=== PATIENT | female | born 1980 | race Caucasian/White ===

== ENCOUNTER 2019-09-06 10:46 | Inpatient (IN) | payer BC, OTHER ==
[2019-09-06 11:34] VITALS: BMI 28.3
[2019-09-06] MEDS ORDERED: SODIUM CHLORIDE 0.9% 1000 ML INFUS.BAG IV ONE (11:37)
[2019-09-06] MEDS ORDERED: ACETAMINOPHEN 1000 MG/100 ML VIAL (NON FORMULARY) IVPB ONE (11:37)
[2019-09-06] MEDS ORDERED: ACETAMINOPHEN INJECTION 100 ML IVPB ONE (12:15)
--- NOTE | 2019-09-06 12:21 | PDOC ---
History of Present Illness - General Chief Complaint: Pain, Acute Stated Complaint: KIDNEY STONE 12 WKS PRG Time Seen by Provider: 09/06/19 11:29 - History of Present Illness Initial Comments: 09/06/19 12:18 39 years old with past medical history significant for UTIs and renal colic presents to the emergency department after finding out yesterday that she was approximately 12 weeks confirmed by ultrasound by DEVIL DOG after she returned home she realized she forgot to mention to her OB that she was having some urinary discomfort and her DEVIL DOG prescribed Macrobid for her to take she took 1 dose this morning Last night patient had sudden onset left flank pain moderate to severe colicky in nature similar to previous kidney stones No fever no chills mild nausea no vomiting complaining of urinary pressure no vaginal discharge symptoms are moderate persistent constant no exacerbating relieving factors. Past History - Past Medical History Allergies/Adverse Reactions: Allergies Allergy/AdvReac Type Severity Reaction Status Date / Time No Known Allergies Allergy Verified 09/06/19 11:30 Home Medications: Ambulatory Orders Pnv with Ca,No.71/Iron/FA [ Vitamin Tablet] 1 each PO DAILY 10/19/12 Acetaminophen [Tylenol .Regular Strength -] 650 mg PO Q4H PRN #0 tablet Ibuprofen [Motrin -] 600 mg PO Q4H PRN #0 tablet 10/26/12 Anemia: No Asthma: No Cancer: No Cardiac Disorders: No COPD: No Diabetes: No HTN: No Seizures: No Thyroid Disease: No - Surgical History Abdominal Surgery: No - Reproductive History (#): 2 Para: 1 - Immunization History Immunization Up to Date: Yes - Psycho Social/Smoking Cessation Hx Smoking Status: No Smoking History: Never smoked Have you smoked in the past 12 months: No Number of Cigarettes Smoked Daily: 0 Hx Alcohol Use: No Drug/Substance Use Hx: No Hx Substance Use Treatment: No Review of Systems - Review of Systems Comments:: 09/06/19 12:20 Insert my ROS statement *Physical Exam - Vital Signs Last Vital Signs Temp Pulse Resp BP Pulse Ox 98.1 F 95 H 17 108/53 L 98 09/06/19 11:31 09/06/19 11:31 09/06/19 11:31 09/06/19 11:31 09/06/19 11:31 ED Treatment Course - LABORATORY CBC & Chemistry Diagram: 12/31/19 12:18 09/06/19 12:18 - RADIOLOGY Radiology Studies Ordered: Category Date Time Status KIDNEY / RENAL US [US] Stat Ultrasound 09/06/19 11:36 Ordered PELVIC / BLADDER US [US] Stat Ultrasound 09/06/19 11:36 Ordered Medical Decision Making - Medical Decision Making 39 years old past medical history significant for UTIs and kidney stones presented to the ED with urinary frequency and flank pain Urinalysis shows infection there is CVA tenderness on patient's physical examination a renal bladder ultrasound was ordered which demonstrated no hydro- no nephrolithiasis no hydroureter and bilateral symmetric ureteral jets at this time low suspicion for nephrolithiasis Given 11-week Case discussed with patient's DEVIL DOG Dr. Ricardo agrees with admission to medicine service for IV antibiotics will consult We will admit to medicine for further management. Discharge - Discharge Information Problems reviewed: Yes Clinical Impression/Diagnosis: Pyelonephritis Qualifiers: Weeks of gestation: 11 weeks Qualified Code(s): Z3A.11 - 11 weeks gestation of Condition: Fair - Admission Yes - Follow up/Referral - Patient Discharge Instructions - Post Discharge Activity
[2019-09-06 12:38] LABS: BASO % 0.5 % (0-2.0); HEMATOCRIT 41.7 % (32.4-45.2); HEMOGLOBIN 14.2 GM/dL (10.7-15.3); LYMPH % 12.7 % (8-40); MCH 31.9 pg (25.7-33.7); MEAN CELL VOLUME 93.9 fl (80-96); MEAN PLT VOLUME 9.7 fl (7.5-11.1); MONO % 3.8 % (3.8-10.2); PLATELET COUNT 188 K/MM3 (134-434); RBC 4.44 M/mm3 (3.60-5.2); RDW 12.4 % (11.6-15.6); WHITE BLOOD COUNT 11.6 K/mm3 (4.0-10.0)
[2019-09-06 13:27] LABS: BILIRUBIN,TOTAL 0.6 mg/dL (0.2-1); BLOOD UREA NITROGEN 8.9 mg/dL (7-18); CALCIUM 9.2 mg/dL (8.5-10.1); CREATININE 0.6 mg/dL (0.55-1.3); POTASSIUM 3.9 mmol/L (3.5-5.1); TOT PROT 7.5 g/dl (6.4-8.2)
[2019-09-06 13:41] LABS: EPI CELLS 2.4 /HPF (0-5/HPF); HYALINE CASTS 19 /lpf (0-8); URINE APPEARANCE CLEAR; URINE BACTERIA 100.3 /hpf (NEGATIVE); URINE BILIRUBIN NEGATIVE (NEGATIVE); URINE COLOR YELLOW; URINE GLUCOSE (UA) NEGATIVE (NEGATIVE); URINE KETONE TRACE (NEGATIVE); URINE LEUK ESTERASE 2+ (NEGATIVE); URINE NITRITE NEGATIVE (NEGATIVE); URINE PROTEIN 3+ (NEGATIVE); URINE RBC 59 /hpf (0-4); URINE WBC 387 /hpf (0-5)
[2019-09-06] MEDS ORDERED: CEFTRIAXONE 1 GM in DEXTROSE 5%-WATER - 100 ML IVPB ONE (14:07)
[2019-09-06] MEDS ORDERED: CEFTRIAXONE 1 GM/50 ML BAG ONE (14:32)
--- NOTE | 2019-09-06 16:09 | HP ---
CHIEF COMPLAINT: left flank pain PCP: Dr. Ricardo HISTORY OF PRESENT ILLNESS: Patient is a 39 year old female with a significant past medical history of UTIs , kidney stones and renal colic. She presents to the ED today for sudden onset of left flank pain with colic. She was concerned she was passing another kidney stone as pain was similar to previous stone. She denies fever, chills or malaise. Patient went to see her OB yesterday for urinary discomfort and was found to be 11 weeks on vaginal ultrasound. She was prescribed macrobid for UTI and she took one dose this morning. A renal/bladder ultrasound done in the ED shows mildly atrophic and scarred left kidney, no evidence of nephrolithiasis/hydronephrosis or acute pathology, no intrinsic bladder abnormalities, SLIUP of 11 weeks 4 days gestational age with a heart rate of 154. ER course was notable for: (1) wbc 11.6 (2) ua: 3+ protein, trace ketones, +2 blood, +2 leuk est. 100 bacteria (3) us/kidney/renal us 09/06/19: mildly atrophic and scarred left kidney, no evidence of nephrolithiasis/hydronephrosis or acute pathology, no intrinsic bladder abnormalities, SLIUP of 11 weeks 4 days gestational age with a heart rate of 154. Recent Travel: none PAST MEDICAL/SURGICAL HISTORY: C section, utis, kidney stones, renal colic Social History: Smoking: none Alcohol: none Drugs: none Allergies No Known Allergies Allergy (Verified 09/06/19 11:30) HOME MEDICATIONS: Home Medications Medication Instructions Recorded Pnv with Ca,No.71/Iron/FA 1 each PO DAILY 10/19/12 [ Vitamin Tablet] PHYSICAL EXAMINATION Vital Signs - 24 hr 09/06/19 09/06/19 11:30 11:31 Temperature 98.1 F Pulse Rate 95 H Respiratory 17 Rate Blood Pressure 108/53 L O2 Sat by Pulse 100 98 Oximetry (%) GENERAL: Awake, alert, and fully oriented, in no acute distress. HEAD: Normal with no signs of trauma. EYES: Pupils equal, round and reactive to light, extraocular movements intact, sclera anicteric, conjunctiva clear. No lid lag. EARS, NOSE, THROAT: Ears normal, nares patent, oropharynx clear without exudates. Moist mucous membranes. NECK: Normal range of motion, supple without lymphadenopathy, JVD, or masses. LUNGS: Breath sounds equal, clear to auscultation bilaterally. No wheezes, and no crackles. No accessory muscle use. HEART: Regular rate and rhythm, normal S1 and S2 without murmur, rub or gallop. ABDOMEN: Soft, nontender, not distended, normoactive bowel sounds, no guarding MUSCULOSKELETAL: mild left CVA tenderness. UPPER EXTREMITIES: No peripheral edema. LOWER EXTREMITIES: No peripheral edema. NEUROLOGICAL: Normal speech. Normal gait. PSYCHIATRIC: Cooperative. Good eye contact. Appropriate mood and affect. SKIN: Warm, dry, normal turgor, no rashes or lesions noted, normal capillary refill. Laboratory Results - last 24 hr 09/06/19 09/06/19 09/06/19 12:18 12:18 12:18 WBC 11.6 H RBC 4.44 Hgb 14.2 Hct 41.7 D MCV 93.9 MCH 31.9 MCHC 34.0 RDW 12.4 D Plt Count 188 D MPV 9.7 Absolute Neuts (auto) 9.5 H Neutrophils % 82.0 Lymphocytes % 12.7 D Monocytes % 3.8 Eosinophils % 1.0 Basophils % 0.5 Nucleated RBC % 0 Sodium 134 L Potassium 3.9 Chloride 101 Carbon Dioxide 24 Anion Gap 9 BUN 8.9 Creatinine 0.6 Est GFR (CKD-EPI)AfAm 132.14 Est GFR (CKD-EPI)NonAf 114.01 Random Glucose 78 Calcium 9.2 Total Bilirubin 0.6 AST 22 ALT 29 Alkaline Phosphatase 53 Total Protein 7.5 Albumin 4.0 Beta HCG, Quant 73209.4 Urine Color Yellow Urine Appearance Clear Urine pH 8.0 Ur Specific [place] 1.023 Urine Protein 3+ H Urine Glucose (UA) Negative Urine Ketones Trace H Urine Blood 2+ H Urine Nitrite Negative Urine Bilirubin Negative Urine Urobilinogen 1.0 Ur Leukocyte Esterase 2+ H Urine WBC (Auto) 387 Urine RBC (Auto) 59 Urine Casts (Auto) 19 U Epithel Cells (Auto) 2.4 Urine Bacteria (Auto) 100.3 ASSESSMENT/PLAN: Problem List - Problem (1) Pyelonephritis Assessment/Plan: Presents with WBC 11.6, left flank pain with history of multiple UTIs ua: 3+ protein, trace ketones, +2 blood, +2 leuk est. 100 bacteria us/kidney/renal us 09/06/19: mildly atrophic and scarred left kidney, no evidence of nephrolithiasis/hydronephrosis or acute pathology, no intrinsic bladder abnormalities. 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, avoid narcotics Code(s): Z34.90 - ENCNTR FOR SUPRVSN OF NORMAL , UNSP, UNSP TRIMESTER Qualifiers: Weeks of gestation: 11 weeks Qualified Code(s): Z3A.11 - 11 weeks gestation of (3) Prophylactic measure Assessment/Plan: fen regular diet monitor electrolytes ns @ 100 cc/hr no a/c, los < 48 hours patient is ambulatory full code Code(s): Z29.9 - ENCOUNTER FOR PROPHYLACTIC MEASURES, UNSPECIFIED Visit type - Emergency Visit Emergency Visit: Yes ED Registration Date: 09/06/19 Care time: The patient presented to the Emergency Department on the above date and was hospitalized for further evaluation of their emergent condition. - New Patient This patient is new to me today: No - Critical Care Critical Care patient: No
[2019-09-06] MEDS: SODIUM CHLORIDE 1,000 ML IV SCH (16:54)
[2019-09-06] MEDS ORDERED: ACETAMINOPHEN 325 MG TABLET (FP) PO PRN (16:57)
--- NOTE | 2019-09-06 20:01 | CON.OBG ---
Consult Consult Specialty:: ER/IM Reason for Consultation:: 39yo P with at 11w4d admitted for in- patient tx of pyelonephritis. - History of Present Illness Chief Complaint: Severe LLQ pain radiating to left flank since 3am today, accompanied by dysuria, urinary frequency and urgency. 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 She had no other complaints at that time. The pt was found to have SIUP at EGA 11w3d and o/w a normal gynecologic examination. The pt called the answering service at around 4am with complaints of some left groin/LLQ pain radiating to left flank. No hematuria, fever, or chills. She was initially advised to start Macrobid and Tylenol with PO hydration. The pt called back about 4 hrs later stating that she bagan abx and Tylenol but the pain became worse and was severe. She was advised to come to the ER. In the ER the pt was diagnosed with pyelonephritis and admitted for IV abx. 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: Alzheimer's, CVA, Dementia, Migraine, Multiple Sclerosis, Peripheral Neuropathy, Parkinson's, Seizure, Syncope, TIA, Vertigo, Other Cardio/Vascular: No: AFIB, Aneurysm, Aortic Insufficiency, Aortic Stenosis, CAD , CHF, Deep Vein Thrombosis, HTN, Hyperlipdemia, GA, Mitral Insufficiency, Mitral Stenosis, Murmur, Pulmonary Hypertension, Other Pulmonary: No: Asthma, Bronchitis, Cancer, COPD, O2 Dependent, Pneumonia, Previously Intubated, Pulmonary Embolus, Pulmonary Fibrosis, Sleep Apnea, Other Gastrointestinal: No: Ascites, Cancer, Constipation, Crohn's Disease, Diverticulitis, Diverticulosis, Esophageal Varices, Gastritis, GERD, GI Bleed, Hemorrhoids, Hiatal Hernia, Inflamatory Bowel Disease, Irritable Bowel Disease, Pancreatitis, Peptic Ulcer Disease, Ulcerative Colitis, Other Hepatobiliary: No: Cirrhosis, Cholelithiasis, Cholecystitis, Choledocholithiasis , Hepatitis A, Hepatitis B, Hepatitis C, Other Renal/: Yes: Renal Calculi ...: Yes (11 12/12 WEEK) ...: 4 ...Para: 2 Heme/Onc: No: Anemia, B12 Deficiency, Bleeding Disorder, Cancer, Current Chemotherapy, Current Radiation Therapy, Hemochromatosis, Hypercoaguable State, Myeloproliferative Synd, Sickle Cell Disease, Sickle Cell Trait, Thrombocytopenia, Other Infectious Disease: No: AIDS, C-Diff, Herpes Zoster, HIV, MRSA, STD's, Tuberculosis, VREF, Other Psych: No: Addictions, Anxiety, Bipolar, Depression, Panic, Psychosis, Schizophrenia, Other Musculoskeletal: No: Bursitis, Chronic low back pain, Hemiparesis, Hemiplegia, Osteoarthritis, Paraplegia, Other Rheumatology: No: Fibromyalgia, Gout, Lupus, Rheumatoid Arthritis, Sarcoidosis, Vasculitis, Other ENT: No: Allergic Rhinitis, Sinusitis, Other Endocrine: No: [place]'s Disease, Kervin's Disease, Diabetes Insipidus, Diabetes Mellitus, Hyperparathyroidism, Hyperthyroidism, Hypothyroidism, Osteopenia, SIADH, Other Dermatology: No: Basal Cell, Cellulitis, Eczema, Melanoma, Psoriasis, Squamous Cell, Other - Past Surgical History Past Surgical History: Yes: ( x 2) - Alcohol/Substance Use Hx Alcohol Use: No History of Substance Use: reports: None - Smoking History Smoking history: Never smoked Have you smoked in the past 12 months: No Aproximately how many cigarettes per day: 0 - Social History Usual Living Arrangement: With Child ADL: Independent Place of : [facility] History of Recent Travel: No Home Medications - Allergies Allergies/Adverse Reactions: Allergies Allergy/AdvReac Type Severity Reaction Status Date / Time No Known Allergies Allergy Verified 09/06/19 11:30 - Home Medications Home Medications: Ambulatory Orders Pnv with Ca,No.71/Iron/FA [ Vitamin Tablet] 1 each PO DAILY 10/19/12 Family Medical History Family History: Unremarkable Review of Systems - Review of Systems Constitutional: reports: No Symptoms Eyes: reports: No Symptoms HENT: reports: No Symptoms Neck: reports: No Symptoms Cardiovascular: reports: No Symptoms Respiratory: reports: No Symptoms Gastrointestinal: reports: Abdominal Pain Genitourinary: reports: Burning, Dysuria, Flank Pain, Frequency, Urgency Breasts: reports: Other (sore) Musculoskeletal: reports: No Symptoms Integumentary: reports: No Symptoms Neurological: reports: No Symptoms Endocrine: reports: No Symptoms Hematology/Lymphatic: reports: No Symptoms Psychiatric: reports: No Symptoms Pain Intensity: 3 (improved simce admission) Physical Exam-DEPUTY FELONY CLERK Vital Signs: Vital Signs Temperature 98.0 F 09/06/19 16:58 Pulse Rate 87 09/06/19 16:58 Respiratory Rate 18 09/06/19 16:58 Blood Pressure 98/63 09/06/19 16:58 O2 Sat by Pulse Oximetry (%) 99 09/06/19 16:58 Constitutional: Yes: Well Nourished, No Distress, Calm Eyes: Yes: WNL, Conjunctiva Clear, EOM Intact HENT: Yes: WNL, Atraumatic, Normocephalic Neck: Yes: WNL, Supple, Trachea Midline Cardiovascular: Yes: WNL, Regular Rate and Rhythm Respiratory: Yes: WNL, Regular, CTA Bilaterally Gastrointestinal: Yes: WNL, Normal Bowel Sounds, Soft, Tenderness (bladder and Left CVAT) ...Rectal Exam: Yes: WNL Renal/: Yes: WNL Internal Exam Deferred: Yes Breast(s): Yes: WNL Musculoskeletal: Yes: WNL Extremities: Yes: WNL Edema: No Integumentary: Yes: WNL Neurological: Yes: WNL, Alert, Oriented ...Motor Strength: WNL Psychiatric: Yes: WNL, Alert, Oriented Labs: CBC, BMP 09/06/19 12:18 09/06/19 12:18 Problem List - Problems (1) Assessment/Plan: SIUP at 11w4d. Pt is asymptomatic at this time with respect to her . No OB issues at this time. Continue vitamins. Problems reviewed: Yes Code(s): Z34.90 - ENCNTR FOR SUPRVSN OF NORMAL , UNSP, UNSP TRIMESTER Qualifiers: Weeks of gestation: 11 weeks Qualified Code(s): Z3A.11 - 11 weeks gestation of (2) Pyelonephritis Assessment/Plan: Likely early pyelonephritis. Agree with IV ceftriaxone and IV hydration. Pain meds prn. F/u urine cx. Problems reviewed: Yes Code(s): N12 - TUBULO-INTERSTITIAL NEPHRITIS, NOT SPCF ACUTE OR CHRONIC Assessment/Plan 39yo P with at 11w4d admitted for in-patient tx of pyelonephritis.
[2019-09-07] MEDS: SODIUM CHLORIDE 1,000 ML IV SCH ×3 (01:25→20:28)
[2019-09-07] MEDS ORDERED: PT OWN MED DRAWER 7, Y5N ONE (09:39)
[2019-09-07] MEDS ORDERED: DEXTROSE 5%-WATER - 50 ML IVPB ONE (09:40)
[2019-09-07] MEDS ORDERED: cefTRIAXone SODIUM 1 GM VIAL ONE (09:40)
[2019-09-07] MEDS: PRENATAL VITAMINS W/ FOLIC ACID TABLET (FP) PO SCH (09:44)
[2019-09-07] MEDS: CEFTRIAXONE 1 GM in DEXTROSE 5%-WATER - 50 ML IVPB SCH (09:44)
[2019-09-07 11:54] LABS: HEMATOCRIT 37.3 % (32.4-45.2); HEMOGLOBIN 12.7 GM/dL (10.7-15.3); MCH 32.4 pg (25.7-33.7); MCHC 34.1 g/dl (32.0-36.0); MEAN PLT VOLUME 10.1 fl (7.5-11.1); PLATELET COUNT 164 K/MM3 (134-434); RBC 3.92 M/mm3 (3.60-5.2); RDW 12.3 % (11.6-15.6); WHITE BLOOD COUNT 7.1 K/mm3 (4.0-10.0)
[2019-09-07 12:16] LABS: BLOOD UREA NITROGEN 7.7 mg/dL (7-18); CALCIUM 8.4 mg/dL (8.5-10.1); CREATININE 0.5 mg/dL (0.55-1.3); MAGNESIUM 2.1 mg/dL (1.8-2.4); POTASSIUM 3.7 mmol/L (3.5-5.1)
--- NOTE | 2019-09-07 14:59 | PN ---
Physical Exam: SUBJECTIVE: Patient seen and examined. ambulating the hallways, having left sided flank pain. OBJECTIVE: Patient is a 39 year old female with a significant past medical history of UTIs , kidney stones and renal colic. She is currently 11 weeks and is admitted on 09/06/2019 for pyelonephritis. Vital Signs Period Temp Pulse Resp BP Sys/[place]as Pulse Ox Last 24 Hr 98.0 F-99.6 F 76-87 16-20 98-108/50-65 99-99 GENERAL: Awake, alert, and fully oriented, in no acute distress. ambulating the hallways. HEAD: Normal with no signs of trauma. EYES: Pupils equal, round and reactive to light, extraocular movements intact, sclera anicteric, conjunctiva clear. No lid lag. EARS, NOSE, THROAT: Ears normal, nares patent, oropharynx clear without exudates. Moist mucous membranes. NECK: Normal range of motion, supple without lymphadenopathy, JVD, or masses. LUNGS: Breath sounds equal, clear to auscultation bilaterally. No wheezes, and no crackles. No accessory muscle use. HEART: Regular rate and rhythm, normal S1 and S2 without murmur, rub or gallop. ABDOMEN: Soft, nontender, not distended, normoactive bowel sounds, no guarding MUSCULOSKELETAL: mild left CVA tenderness. UPPER EXTREMITIES: No peripheral edema. LOWER EXTREMITIES: No peripheral edema. NEUROLOGICAL: Normal speech. Normal gait. PSYCHIATRIC: Cooperative. Good eye contact. Appropriate mood and affect. SKIN: Warm, dry, normal turgor, no rashes or lesions noted, normal capillary refill. Laboratory Results - last 24 hr 09/07/19 09/07/19 11:17 11:17 WBC 7.1 RBC 3.92 Hgb 12.7 Hct 37.3 MCV 95.0 MCH 32.4 MCHC 34.1 RDW 12.3 Plt Count 164 MPV 10.1 Sodium 139 Potassium 3.7 Chloride 110 H Carbon Dioxide 22 Anion Gap 6 L BUN 7.7 Creatinine 0.5 L Est GFR (CKD-EPI)AfAm 140.31 Est GFR (CKD-EPI)NonAf 121.06 Random Glucose 93 Calcium 8.4 L Magnesium 2.1 Active Medications Generic Name Dose Route Start Last Admin Trade Name Freq PRN Reason Stop Dose Admin Acetaminophen 650 mg 09/06/19 16:57 09/07/19 10:57 Tylenol - PO 650 mg Q6H PRN Administration PAIN LEVEL 6-10 Ceftriaxone Sodium 1 gm/ 50 mls @ 200 mls/hr 09/07/19 10:00 09/07/19 09:44 Dextrose IVPB 200 mls/hr DAILY RAPHAEL Administration Protocol Sodium Chloride 1,000 mls @ 150 mls/hr 09/07/19 14:59 Normal Saline - IV ASDIR RAPHAEL Multivit/Folic Acid/Iron 1 tab 09/07/19 10:00 09/07/19 09:44 Vitamins (Sjr) - PO 1 tab DAILY RAPHAEL Administration ASSESSMENT/PLAN: Problem List - Problems (1) Pyelonephritis Assessment/Plan: Presents with WBC 11.6, left flank pain with history of multiple UTIs ua: 3+ protein, trace ketones, +2 blood, +2 leuk est. 100 bacteria us/kidney/renal us 09/06/19: mildly atrophic and scarred left kidney, no evidence of nephrolithiasis/hydronephrosis or acute pathology, no intrinsic bladder abnormalities. 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, avoid narcotics on a pre- vitamin Code(s): Z34.90 - ENCNTR FOR SUPRVSN OF NORMAL , UNSP, UNSP TRIMESTER Qualifiers: Weeks of gestation: 11 weeks Qualified Code(s): Z3A.11 - 11 weeks gestation of (3) Prophylactic measure Assessment/Plan: fen regular diet monitor electrolytes ns @ 150 cc/hr no a/c, los < 48 hours patient is ambulatory full code Code(s): Z29.9 - ENCOUNTER FOR PROPHYLACTIC MEASURES, UNSPECIFIED Visit type - Emergency Visit Emergency Visit: Yes ED Registration Date: 09/06/19 Care time: The patient presented to the Emergency Department on the above date and was hospitalized for further evaluation of their emergent condition. - New Patient This patient is new to me today: No - Critical Care Critical Care patient: No - Discharge Referral Referred to [facility] Med P.C.: No
[2019-09-07] MEDS ORDERED: ACETAMINOPHEN 1000 MG/100 ML VIAL (NON FORMULARY) IVPB ONE (15:15)
--- NOTE | 2019-09-07 18:42 | PN ---
Progress Note (SOAP) - Subjective Chief Complaint: Pain improved from 10/10 to about 6-7/10. No fever, chills, or vaginal bleeding. History of Present Illness: The pt was diagnosed with pyelonephritis and admitted for IV abx. Clinically better. - Current Medications Current Medications: Active Medications Acetaminophen (Tylenol -) 650 mg PO Q6H PRN PRN Reason: PAIN LEVEL 6-10 Last Admin: 09/07/19 10:57 Dose: 650 mg Ceftriaxone Sodium 1 gm/ (Dextrose) 50 mls @ 200 mls/hr IVPB DAILY [facility]; Protocol Last Admin: 09/07/19 09:44 Dose: 200 mls/hr Sodium Chloride (Normal Saline -) 1,000 mls @ 150 mls/hr IV ASDIR [facility] Last Admin: 09/07/19 15:26 Dose: 150 mls/hr Multivit/Folic Acid/Iron ( Vitamins (Sjr) -) 1 tab PO DAILY [facility] Last Admin: 09/07/19 09:44 Dose: 1 tab - Objective Vital Signs: Vital Signs Temperature 98.1 F 09/07/19 13:25 Pulse Rate 84 09/07/19 13:25 Respiratory Rate 18 09/07/19 13:25 Blood Pressure 101/55 L 09/07/19 13:25 O2 Sat by Pulse Oximetry (%) 99 09/07/19 09:00 Constitutional: Yes: Well Nourished, No Distress, Calm Eyes: Yes: WNL, Conjunctiva Clear, EOM Intact HENT: Yes: WNL, Atraumatic, Normocephalic Neck: Yes: WNL, Supple, Trachea Midline Cardiovascular: Yes: WNL, Regular Rate and Rhythm Respiratory: Yes: WNL, Regular, CTA Bilaterally Gastrointestinal: Yes: WNL, Normal Bowel Sounds, Soft ...Rectal Exam: Yes: Deferred Genitourinary: Yes: Other (mid left CVAT) Musculoskeletal: Yes: WNL Extremities: Yes: WNL Edema: No Integumentary: Yes: WNL Neurological: Yes: WNL, Alert, Oriented ...Motor Strength: Yes: WNL Psychiatric: Yes: WNL Labs Lab Results: CBCD WBC 7.1 K/mm3 (4.0-10.0) 09/07/19 11:17 RBC 3.92 M/mm3 (3.60-5.2) 09/07/19 11:17 Hgb 12.7 GM/dL (10.7-15.3) 09/07/19 11:17 Hct 37.3 % (32.4-45.2) 09/07/19 11:17 MCV 95.0 fl (80-96) 09/07/19 11:17 MCHC 34.1 g/dl (32.0-36.0) 09/07/19 11:17 RDW 12.3 % (11.6-15.6) 09/07/19 11:17 Plt Count 164 K/MM3 (134-434) 09/07/19 11:17 MPV 10.1 fl (7.5-11.1) 09/07/19 11:17 CMP Sodium 139 mmol/L (136-145) 09/07/19 11:17 Potassium 3.7 mmol/L (3.5-5.1) 09/07/19 11:17 Chloride 110 mmol/L (98-107) H 09/07/19 11:17 Carbon Dioxide 22 mmol/L (21-32) 09/07/19 11:17 Anion Gap 6 MMOL/L (8-16) L 09/07/19 11:17 BUN 7.7 mg/dL (7-18) 09/07/19 11:17 Creatinine 0.5 mg/dL (0.55-1.3) L 09/07/19 11:17 Random Glucose 93 mg/dL (74-106) 09/07/19 11:17 Calcium 8.4 mg/dL (8.5-10.1) L 09/07/19 11:17 Total Bilirubin 0.6 mg/dL (0.2-1) 09/06/19 12:18 AST 22 U/L (15-37) 09/06/19 12:18 ALT 29 U/L (13-61) 09/06/19 12:18 Alkaline Phosphatase 53 U/L (45-117) 09/06/19 12:18 Total Protein 7.5 g/dl (6.4-8.2) 09/06/19 12:18 Albumin 4.0 g/dl (3.4-5.0) 09/06/19 12:18 Problem List - Problems (1) Assessment/Plan: SIUP at 11w5d. Pt is asymptomatic at this time with respect to her . No OB issues at this time. Continue vitamins. Further Ob/ care will be in-office. Problems reviewed: Yes Code(s): Z34.90 - ENCNTR FOR SUPRVSN OF NORMAL , UNSP, UNSP TRIMESTER Qualifiers: Weeks of gestation: 11 weeks Qualified Code(s): Z3A.11 - 11 weeks gestation of (2) Pyelonephritis Assessment/Plan: Pyelonephritis with clinical improvement. Continue IV ceftriaxone and IV hydration. Pain meds prn. F/u urine cx. Anticipate greater improvement with another day/dose of IV abx and d/c to home with PO abx (e.g. Macrobid) to complete the 7 day course. Problems reviewed: Yes Code(s): N12 - TUBULO-INTERSTITIAL NEPHRITIS, NOT SPCF ACUTE OR CHRONIC
[2019-09-08 04:03] VITALS: TEMP 98.2
[2019-09-08] MEDS ORDERED: cefTRIAXone SODIUM 1 GM VIAL ONE (10:07)
[2019-09-08] MEDS ORDERED: PT OWN MED DRAWER 7, Y5N ONE (10:07)
[2019-09-08] MEDS ORDERED: DEXTROSE 5%-WATER - 50 ML IVPB ONE (10:08)
[2019-09-08] MEDS: PRENATAL VITAMINS W/ FOLIC ACID TABLET (FP) PO SCH (10:12)
[2019-09-08] MEDS: CEFTRIAXONE 1 GM in DEXTROSE 5%-WATER - 50 ML IVPB SCH (10:12)
[2019-09-08] MEDS ORDERED: POLYETHYLENE GLYCOL 3350 119 GM BTL PO ONE (10:26)
[2019-09-08 11:23] LABS: BASO % 0.2 % (0-2.0); EOS % 1.9 % (0-4.5); HEMATOCRIT 38.3 % (32.4-45.2); HEMOGLOBIN 13.1 GM/dL (10.7-15.3); LYMPH % 17.7 % (8-40); MCH 32.3 pg (25.7-33.7); MCHC 34.3 g/dl (32.0-36.0); MEAN CELL VOLUME 94.1 fl (80-96); MEAN PLT VOLUME 9.6 fl (7.5-11.1); MONO % 5.1 % (3.8-10.2); NEUT % 75.1 % (42.8-82.8); PLATELET COUNT 164 K/MM3 (134-434); RBC 4.07 M/mm3 (3.60-5.2); RDW 12.5 % (11.6-15.6)
[2019-09-08 11:38] LABS: ALBUMIN 3.4 g/dl (3.4-5.0); BILIRUBIN,TOTAL 0.4 mg/dL (0.2-1); BLOOD UREA NITROGEN 7.7 mg/dL (7-18); CREATININE 0.5 mg/dL (0.55-1.3); MAGNESIUM 1.9 mg/dL (1.8-2.4); POTASSIUM 3.7 mmol/L (3.5-5.1); TOT PROT 6.7 g/dl (6.4-8.2)
--- NOTE | 2019-09-08 12:57 | PN ---
Progress Note (SOAP) - Subjective Chief Complaint: Pain improved. No fever, chills, or vaginal bleeding. History of Present Illness: The pt was diagnosed with pyelonephritis and admitted for IV abx. She had IV Rocephin and now feels much better. UCx is negative, WBC declined to normal. - Current Medications Current Medications: Active Medications Acetaminophen (Tylenol -) 650 mg PO Q6H PRN PRN Reason: PAIN LEVEL 6-10 Last Admin: 09/07/19 10:57 Dose: 650 mg Ceftriaxone Sodium 1 gm/ (Dextrose) 50 mls @ 200 mls/hr IVPB DAILY RAPHAEL; Protocol Last Admin: 09/08/19 10:12 Dose: 200 mls/hr Sodium Chloride (Normal Saline -) 1,000 mls @ 150 mls/hr IV ASDIR RAPHAEL Last Admin: 09/07/19 20:28 Dose: 150 mls/hr Multivit/Folic Acid/Iron ( Vitamins (Sjr) -) 1 tab PO DAILY RAPHAEL Last Admin: 09/08/19 10:12 Dose: 1 tab - Objective Vital Signs: Vital Signs Temperature 98.2 F 09/08/19 08:53 Pulse Rate 91 H 09/08/19 08:53 Respiratory Rate 18 09/08/19 08:53 Blood Pressure 112/51 L 09/08/19 08:53 O2 Sat by Pulse Oximetry (%) 99 09/08/19 09:00 Constitutional: Yes: Well Nourished, No Distress, Calm Eyes: Yes: WNL, Conjunctiva Clear, EOM Intact HENT: Yes: WNL, Atraumatic, Normocephalic Neck: Yes: WNL, Supple, Trachea Midline Cardiovascular: Yes: WNL, Regular Rate and Rhythm Respiratory: Yes: WNL, Regular, CTA Bilaterally Gastrointestinal: Yes: WNL, Normal Bowel Sounds Genitourinary: Yes: WNL, Other (no CVAT) Musculoskeletal: Yes: WNL Extremities: Yes: WNL Edema: No Integumentary: Yes: WNL Neurological: Yes: WNL, Alert, Oriented ...Motor Strength: Yes: WNL Psychiatric: Yes: WNL Labs Lab Results: CBCD WBC 8.0 K/mm3 (4.0-10.0) 09/08/19 10:45 RBC 4.07 M/mm3 (3.60-5.2) 09/08/19 10:45 Hgb 13.1 GM/dL (10.7-15.3) 09/08/19 10:45 Hct 38.3 % (32.4-45.2) 09/08/19 10:45 MCV 94.1 fl (80-96) 09/08/19 10:45 MCHC 34.3 g/dl (32.0-36.0) 09/08/19 10:45 RDW 12.5 % (11.6-15.6) 09/08/19 10:45 Plt Count 164 K/MM3 (134-434) 09/08/19 10:45 MPV 9.6 fl (7.5-11.1) 09/08/19 10:45 CMP Sodium 137 mmol/L (136-145) 09/08/19 10:45 Potassium 3.7 mmol/L (3.5-5.1) 09/08/19 10:45 Chloride 106 mmol/L (98-107) 09/08/19 10:45 Carbon Dioxide 22 mmol/L (21-32) 09/08/19 10:45 Anion Gap 9 MMOL/L (8-16) 09/08/19 10:45 BUN 7.7 mg/dL (7-18) 09/08/19 10:45 Creatinine 0.5 mg/dL (0.55-1.3) L 09/08/19 10:45 Random Glucose 82 mg/dL (74-106) 09/08/19 10:45 Calcium 9.0 mg/dL (8.5-10.1) 09/08/19 10:45 Total Bilirubin 0.4 mg/dL (0.2-1) 09/08/19 10:45 AST 24 U/L (15-37) 09/08/19 10:45 ALT 35 U/L (13-61) 09/08/19 10:45 Alkaline Phosphatase 48 U/L (45-117) 09/08/19 10:45 Total Protein 6.7 g/dl (6.4-8.2) 09/08/19 10:45 Albumin 3.4 g/dl (3.4-5.0) 09/08/19 10:45 Problem List - Problems (1) Assessment/Plan: SIUP at 11w6d. Pt is asymptomatic at this time with respect to her . No OB issues at this time. Continue vitamins. Further Ob/ care will be in-office. Pt has f/u scheduled for next week. Problems reviewed: Yes Code(s): Z34.90 - ENCNTR FOR SUPRVSN OF NORMAL , UNSP, UNSP TRIMESTER Qualifiers: Weeks of gestation: 11 weeks Qualified Code(s): Z3A.11 - 11 weeks gestation of (2) Pyelonephritis Assessment/Plan: Pyelonephritis with clinical improvement. I believe that the pt is able to go home. She has Macrobid at home to complete the 7 day course. Code(s): N12 - TUBULO-INTERSTITIAL NEPHRITIS, NOT SPCF ACUTE OR CHRONIC
[2019-09-08 13:11] VITALS: BP 110/56; PULSE 88
[2019-09-08] MEDS ORDERED: BISACODYL 10 MG SUPP.RECT RC ONE (14:05)
--- NOTE | 2019-09-08 16:37 | PN ---
Physical Exam: SUBJECTIVE: Patient seen and examined at the bedside. feels well, wants to shower. per primary care RN, patient now having left flank pain after was discontinued from IVF. OBJECTIVE: Patient is a 39 year old female with a significant past medical history of UTIs , kidney stones and renal colic. She is currently 11 weeks and is admitted on 09/06/2019 for pyelonephritis. discharge once cleared by special education paraeducator. Vital Signs Period Temp Pulse Resp BP Sys/Pappas Pulse Ox Last 24 Hr 98.2 F-98.4 F 74-91 18-20 95-112/51-56 99-99 GENERAL: Awake, alert, and fully oriented, in no acute distress. HEAD: Normal with no signs of trauma. EYES: Pupils equal, round and reactive to light, extraocular movements intact, sclera anicteric, conjunctiva clear. No lid lag. EARS, NOSE, THROAT: Ears normal, nares patent, oropharynx clear without exudates. Moist mucous membranes. NECK: Normal range of motion, supple without lymphadenopathy, JVD, or masses. LUNGS: Breath sounds equal, clear to auscultation bilaterally. No wheezes, and no crackles. No accessory muscle use. HEART: Regular rate and rhythm, normal S1 and S2 without murmur, rub or gallop. ABDOMEN: Soft, nontender, not distended, normoactive bowel sounds, no guarding MUSCULOSKELETAL: mild left CVA tenderness. UPPER EXTREMITIES: No peripheral edema. LOWER EXTREMITIES: No peripheral edema. NEUROLOGICAL: Normal speech. Normal gait. PSYCHIATRIC: Cooperative. Good eye contact. Appropriate mood and affect. SKIN: Warm, dry, normal turgor, no rashes or lesions noted, normal capillary refill. Laboratory Results - last 24 hr 09/08/19 09/08/19 10:45 10:45 WBC 8.0 RBC 4.07 Hgb 13.1 Hct 38.3 MCV 94.1 MCH 32.3 MCHC 34.3 RDW 12.5 Plt Count 164 MPV 9.6 Absolute Neuts (auto) 6.0 Neutrophils % 75.1 Lymphocytes % 17.7 D Monocytes % 5.1 Eosinophils % 1.9 D Basophils % 0.2 Nucleated RBC % 0 Sodium 137 Potassium 3.7 Chloride 106 Carbon Dioxide 22 Anion Gap 9 BUN 7.7 Creatinine 0.5 L Est GFR (CKD-EPI)AfAm 140.31 Est GFR (CKD-EPI)NonAf 121.06 Random Glucose 82 Calcium 9.0 Magnesium 1.9 Total Bilirubin 0.4 AST 24 ALT 35 Alkaline Phosphatase 48 Total Protein 6.7 Albumin 3.4 Active Medications Generic Name Dose Route Start Last Admin Trade Name Freq PRN Reason Stop Dose Admin Acetaminophen 650 mg 09/06/19 16:57 09/07/19 10:57 Tylenol - PO 650 mg Q6H PRN Administration PAIN LEVEL 6-10 Ceftriaxone Sodium 1 gm/ 50 mls @ 200 mls/hr 09/07/19 10:00 09/08/19 10:12 Dextrose IVPB 200 mls/hr DAILY RAPHAEL Administration Protocol Sodium Chloride 1,000 mls @ 150 mls/hr 09/07/19 14:59 09/07/19 20:28 Normal Saline - IV 150 mls/hr ASDIR RAPHAEL Administration Multivit/Folic Acid/Iron 1 tab 09/07/19 10:00 09/08/19 10:12 Vitamins (Sjr) - PO 1 tab DAILY RAPHAEL Administration ASSESSMENT/PLAN: Problem List - Problems (1) Pyelonephritis Assessment/Plan: leukocytosis resolved. had some left flank pain today after ivf discontinued us/kidney/renal us 09/06/19: mildly atrophic and scarred left kidney, no evidence of nephrolithiasis/hydronephrosis or acute pathology, no intrinsic bladder abnormalities. on ceftriaxon day #3 On 150cc per hour and monitor output urine culture negative would benefit from urology outpatient referral for scarred left kidney and kidney stones Code(s): N12 - TUBULO-INTERSTITIAL NEPHRITIS, NOT SPCF ACUTE OR CHRONIC (2) Assessment/Plan: 11 week per ultrasound tobacco roller following tylenol prn for pain, avoid narcotics on a pre- vitamin Code(s): Z34.90 - ENCNTR FOR SUPRVSN OF NORMAL , UNSP, UNSP TRIMESTER Qualifiers: Weeks of gestation: 11 weeks Qualified Code(s): Z3A.11 - 11 weeks gestation of (3) Prophylactic measure Assessment/Plan: fen regular diet monitor electrolytes ns @ 150 cc/hr no a/c, los < 48 hours patient is ambulatory full code Code(s): Z29.9 - ENCOUNTER FOR PROPHYLACTIC MEASURES, UNSPECIFIED Visit type - Emergency Visit Emergency Visit: Yes ED Registration Date: 09/06/19 Care time: The patient presented to the Emergency Department on the above date and was hospitalized for further evaluation of their emergent condition. - New Patient This patient is new to me today: No - Critical Care Critical Care patient: No - Discharge Referral Referred to [facility] No
--- NOTE | 2019-09-08 20:10 | DS ---
Physical Exam: SUBJECTIVE: Patient seen and examined at the bedside. cleared for d/c home by low voltage electrician. OBJECTIVE: Patient is a 39 year old female with a significant past medical history of UTIs , kidney stones and renal colic. She is currently 11 weeks and is admitted on 09/06/2019 for pyelonephritis. She has received 3 days of Iv antibiotics (Rocephin) and will be converted to Macrobid for 7 more days per ob/ roll up guider operator. Vital Signs Period Temp Pulse Resp BP Sys/Pappas Pulse Ox Last 24 Hr 98.2 F-98.4 F 74-91 18-20 95-112/51-56 99-99 PHYSICAL EXAM GENERAL: Awake, alert, and fully oriented, in no acute distress. HEAD: Normal with no signs of trauma. EYES: Pupils equal, round and reactive to light, extraocular movements intact, sclera anicteric, conjunctiva clear. No lid lag. EARS, NOSE, THROAT: Ears normal, nares patent, oropharynx clear without exudates. Moist mucous membranes. NECK: Normal range of motion, supple without lymphadenopathy, JVD, or masses. LUNGS: Breath sounds equal, clear to auscultation bilaterally. No wheezes, and no crackles. No accessory muscle use. HEART: Regular rate and rhythm, normal S1 and S2 without murmur, rub or gallop. ABDOMEN: Soft, nontender, not distended, normoactive bowel sounds, no guarding MUSCULOSKELETAL: mild left CVA tenderness. UPPER EXTREMITIES: No peripheral edema. LOWER EXTREMITIES: No peripheral edema. NEUROLOGICAL: Normal speech. Normal gait. PSYCHIATRIC: Cooperative. Good eye contact. Appropriate mood and affect. SKIN: Warm, dry, normal turgor, no rashes or lesions noted, normal capillary refill. LABS Laboratory Results - last 24 hr 09/08/19 09/08/19 10:45 10:45 WBC 8.0 RBC 4.07 Hgb 13.1 Hct 38.3 MCV 94.1 MCH 32.3 MCHC 34.3 RDW 12.5 Plt Count 164 MPV 9.6 Absolute Neuts (auto) 6.0 Neutrophils % 75.1 Lymphocytes % 17.7 D Monocytes % 5.1 Eosinophils % 1.9 D Basophils % 0.2 Nucleated RBC % 0 Sodium 137 Potassium 3.7 Chloride 106 Carbon Dioxide 22 Anion Gap 9 BUN 7.7 Creatinine 0.5 L Est GFR (CKD-EPI)AfAm 140.31 Est GFR (CKD-EPI)NonAf 121.06 Random Glucose 82 Calcium 9.0 Magnesium 1.9 Total Bilirubin 0.4 AST 24 ALT 35 Alkaline Phosphatase 48 Total Protein 6.7 Albumin 3.4 HOSPITAL COURSE: Date of Admission:09/06/19 Date of Discharge: 09/08/19 Minutes to complete discharge: 45 Discharge Summary Problems reviewed: Yes Reason For Visit: PREGANACY,PYELONEPHRITIS Condition: Improved - Instructions Diet, Activity, Other Instructions: You were admitted on 09/06/2019 for pyelonephritis. Mrs Borden: 11 weeks gestation of , Continue with vitamins. Followup scheduled for next week Ob/ care visit Dr. Ricardo. Patient has Macrobid at home to complete the 7 day course. Regular diet Referrals: Vadim Ricardo MD [Staff Physician] - 1 Week Disposition: HOME - Home Medications Comprehensive Discharge Medication List: Ambulatory Orders Pnv with Ca,No.71/Iron/FA [ Vitamin Tablet] 1 each PO DAILY 10/19/12 Nitrofurantoin Monohyd/M-Cryst [Macrobid -] 100 mg PO BID #14 capsule 09/08/19 Problem List - Problems (1) Pyelonephritis Assessment/Plan: leukocytosis resolved. had some left flank pain today after ivf discontinued, but improved with tylenol us/kidney/renal us 09/06/19: mildly atrophic and scarred left kidney, no evidence of nephrolithiasis/hydronephrosis or acute pathology, no intrinsic bladder abnormalities. on ceftriaxon day #3 encourage oral intake urine culture negative would benefit from urology outpatient referral for scarred left kidney and kidney stones, to be arranged by her pcp Code(s): N12 - TUBULO-INTERSTITIAL NEPHRITIS, NOT SPCF ACUTE OR CHRONIC (2) Assessment/Plan: 11 week per ultrasound business objects consultant following tylenol prn for pain, avoid narcotics on a pre-mario vitamin Code(s): Z34.90 - ENCNTR FOR SUPRVSN OF NORMAL , UNSP, UNSP TRIMESTER Qualifiers: Weeks of gestation: 11 weeks Qualified Code(s): Z3A.11 - 11 weeks gestation of (3) Prophylactic measure Assessment/Plan: discharge home Code(s): Z29.9 - ENCOUNTER FOR PROPHYLACTIC MEASURES, UNSPECIFIED This patient is new to me today: No Emergency Visit: Yes ED Registration Date: 09/06/19 Care time: The patient presented to the Emergency Department on the above date and was hospitalized for further evaluation of their emergent condition. Critical Care patient: No - Discharge Referral Referred to [facility] No
== END 2019-09-08 19:51 | disposition home or self-care (01) | DRG 833 ==
LOC: JER 10:46 → JERBED 14:10 → J6S 16:50
PROVIDERS: ATTEND Nurse Practitioner Family
DX: O23.01 Infections of kidney in pregnancy, first trimester (principal); Z3A.11 11 weeks gestation of pregnancy
CPT/HCPCS: 36415; 76775-TC; 76856-TC; 80048; 80053; 81003; 83735; 84702; 85025; 85027; 87086; 99284-25; J0131; J7030

== ENCOUNTER 2020-02-12 21:25 | Observation (INO) | payer OTHER ==
[2020-02-12] MEDS: ELECTROLYTE-148 SOLN 1,000 ML IV SCH (22:00)
[2020-02-12] MEDS ORDERED: BETAMET ACET/BETAMET NA PH 30 MG/5 ML VIAL IM ONE (22:26)
[2020-02-12] MEDS: MAGNESIUM 4GM/H20 - 4 GM/100 ML IVPB IVPB SCH (22:46)
[2020-02-12] MEDS: MAGNESIUM SULFATE 20GM/500ML - 20 GM/500 ML INFUS.BAG IV SCH (23:28)
[2020-02-13 00:29] LABS: BASO % 0.2 % (0-2.0); EOS % 1.6 % (0-4.5); HEMATOCRIT 37.8 % (32.4-45.2); HEMOGLOBIN 12.9 GM/dL (10.7-15.3); LYMPH % 14.1 % (8-40); MCH 32.4 pg (25.7-33.7); MCHC 34.1 g/dl (32.0-36.0); MEAN CELL VOLUME 94.9 fl (80-96); MEAN PLT VOLUME 9.3 fl (7.5-11.1); MONO % 5.2 % (3.8-10.2); NEUT % 78.9 % (42.8-82.8); PLATELET COUNT 158 K/MM3 (134-434); RBC 3.99 M/mm3 (3.60-5.2); RDW 14.2 % (11.6-15.6); WHITE BLOOD COUNT 9.2 K/mm3 (4.0-10.0)
[2020-02-13 00:37] LABS: INR 0.83 (0.83-1.09); PROTHROMBIN TIME (PATIENT) 9.8 SEC (9.7-13.0)
[2020-02-13 00:40] LABS: ACTIVATED PTT 25.6 SECONDS (25.2-36.5)
[2020-02-13 01:01] LABS: BLOOD UREA NITROGEN 6.8 mg/dL (7-18); CREATININE 0.5 mg/dL (0.55-1.3); POTASSIUM 3.7 mmol/L (3.5-5.1)
[2020-02-13 03:29] LABS: PLATELET ESTIMATE ADEQUATE
[2020-02-13] MEDS ORDERED: AMPICILLIN SODIUM 2 GM VIAL ONE (08:46)
[2020-02-13] MEDS ORDERED: AMPICILLIN SODIUM 1 GM VIAL ONE ×3 (08:48→21:08)
[2020-02-13] MEDS ORDERED: AMPICILLIN - 2 GM in SODIUM CHLORIDE 100 ML IVPB ONE (09:00)
[2020-02-13] MEDS ORDERED: MAGNESIUM SULFATE 20GM/500ML - 20 GM/500 ML INFUS.BAG ONE ×2 (09:35→20:00)
[2020-02-13] MEDS: AMPICILLIN - 1 GM in SODIUM CHLORIDE 100 ML IVPB SCH ×3 (13:00→21:00)
[2020-02-13] MEDS: ELECTROLYTE-148 SOLN 1,000 ML IV SCH (22:30)
[2020-02-13] MEDS: MAGNESIUM 4GM/H20 - 4 GM/100 ML IVPB IVPB SCH (22:30)
[2020-02-13] MEDS: MAGNESIUM SULFATE 20GM/500ML - 20 GM/500 ML INFUS.BAG IV SCH (22:30)
[2020-02-13] MEDS ORDERED: BETAMET ACET/BETAMET NA PH 30 MG/5 ML VIAL ONE (22:52)
[2020-02-13] MEDS ORDERED: BETAMET ACET/BETAMET NA PH 30 MG/5 ML VIAL IM ONE (23:00)
[2020-02-14] MEDS: AMPICILLIN - 1 GM in SODIUM CHLORIDE 100 ML IVPB SCH (01:00)
[2020-02-14 09:04] VITALS: BP 100/60; PULSE 88; TEMP 98.5
== END 2020-02-14 09:20 | disposition home or self-care (01) ==
LOC: JDEL 21:25 → JLDR 21:26 → UNDOADMOB 22:15 → INTOOBSV 22:15
PROVIDERS: ADMIT Obstetrics & Gynecology; ATTEND Obstetrics & Gynecology
PROC: 3E03329 Introduction of Other Anti-infective into Peripheral Vein, Percutaneous Approach (ICD-10-PCS; principal; 2020-02-12)
PROC: 3E023GC Introduction of Other Therapeutic Substance into Muscle, Percutaneous Approach (ICD-10-PCS; 2020-02-12)
DX: O60.03 Preterm labor without delivery, third trimester (principal); Z3A.34 34 weeks gestation of pregnancy; O09.523 Supervision of elderly multigravida, third trimester; O34.219 Maternal care for unspecified type scar from previous cesarean delivery; O26.833 Pregnancy related renal disease, third trimester; N20.0 Calculus of kidney
CPT/HCPCS: 36415; 80048; 83735; 85025; 85610; 85730; 86780; 86850; 86900; 86901; 96372; G0378

== ENCOUNTER 2020-03-09 08:25 | Inpatient (IN) | payer OTHER ==
[2020-03-09 09:55] VITALS: BMI 35.2
[2020-03-09] MEDS ORDERED: ELECTROLYTE-148 SOLN 1,000 ML IV SCH (10:30)
[2020-03-09 10:36] LABS: BASO % 0.3 % (0-2.0); EOS % 1.6 % (0-4.5); HEMATOCRIT 37.8 % (32.4-45.2); HEMOGLOBIN 12.9 GM/dL (10.7-15.3); LYMPH % 15.7 % (8-40); MCH 32.3 pg (25.7-33.7); MCHC 34.1 g/dl (32.0-36.0); MEAN CELL VOLUME 94.8 fl (80-96); MEAN PLT VOLUME 9.7 fl (7.5-11.1); MONO % 5.3 % (3.8-10.2); NEUT % 77.1 % (42.8-82.8); PLATELET COUNT 156 K/MM3 (134-434); RBC 3.99 M/mm3 (3.60-5.2); RDW 14.9 % (11.6-15.6); WHITE BLOOD COUNT 8.8 K/mm3 (4.0-10.0)
--- NOTE | 2020-03-09 10:37 | HP ---
Past Medical History - Primary Care Physician PCP:: Vadim Ricardo - Admission Chief Complaint: 40yo P2 with at EGA 38w0d admitted for repeat C/S and sterilization. History of Present Illness: complicated by: 1. Presented with spontaneous contractions 2. Prior h/o x 2 3 Last C/S with thin low uterine segment "window". 4. h/o recurremt UTI's and renal stones this 5. BPP 04/16 yesterday (-2 for breathing) History Source: Patient, Medical Record Limitations to Obtaining History: No Limitations, Clinical Condition, Dementia, Intoxication, Intubated, Language Barrier, Physical Impairment, Poor Historian, Uncooperative, Unresponsive, Other - Past Medical History PLANT PACKER: No: Alzheimer's, CVA, Dementia, Migraine, Multiple Sclerosis, Peripheral Neuropathy, Parkinson's, Seizure, Syncope, TIA, Vertigo, Other Cardiovascular: No: AFIB, Aneurysm, Aortic Insufficiency, Aortic Stenosis, CAD, CHF, Deep Vein Thrombosis, HTN, Hyperlipdemia, MA, Mitral Insufficiency, Mitral Stenosis, Murmur, Pulmonary Hypertension, Other Pulmonary: No: Asthma, Bronchitis, Cancer, COPD, O2 Dependent, Pneumonia, Previously Intubated, Pulmonary Embolus, Pulmonary Fibrosis, Sleep Apnea, Other Gastrointestinal: No: Ascites, Cancer, Constipation, Crohn's Disease, Diverticu litis, Diverticulosis, Esophageal Varices, Gastritis, GERD, GI Bleed, Hemorrhoids, Hiatal Hernia, Inflamatory Bowel Disease, Irritable Bowel Disease, Pancreatitis, Peptic Ulcer Disease, Ulcerative Colitis, Other Hepatobiliary: No: Cirrhosis, Cholelithiasis, Cholecystitis, Choledocholithiasis, Hepatitis A, Hepatitis B, Hepatitis C, Other Renal/: Yes: Renal Calculi, UTI Reproductive: No: Ectopic , Endometriosis, Fibroids, PID, Polycystic Ovary Syndrome, Postmenopausal, Other ...: 3 ...Para: 2 ...Term: 2 ...: 0 ...Spon : 0 ...Induced : 0 ...Living Children: 2 ...Multiple Gestation: 0 ...EDC by Sono: 03/23/20 Heme/Onc: No: Anemia, B12 Deficiency, Bleeding Disorder, Cancer, Current Chemotherapy, Current Radiation Therapy, Hemochromatosis, Hypercoaguable State, Myeloproliferative Synd, Sickle Cell Disease, Sickle Cell Trait, Thr ombocytopenia, Other Infectious Disease: No: AIDS, C-Diff, Herpes Zoster, HIV, MRSA, STD's, Tuberculosis, VREF, Other Psych: No: Addictions, Anxiety, Bipolar, Depression, Panic, Psychosis, Schizophrenia, Other Musculoskeletal: No: Bursitis, Chronic low back pain, Hemiparesis, Hemiplegia, Osteoarthritis, Paraplegia, Other Rheumatology: No: Fibromyalgia, Gout, Lupus, Rheumatoid Arthritis, Sarcoidosis, Vasculitis, Other ENT: No: Allergic Rhinitis, Sinusitis, Other Endocrine: No: Lauro's Disease, [place]'s Disease, Diabetes Insipidus, Diabetes Mellitus, Hyperparathyroidism, Hyperthyroidism, Hypothyroidism, Osteopenia, SIADH, Other Dermatology: No: Basal Cell, Cellulitis, Eczema, Melanoma, Psoriasis, Squamous Cell, Other - Past Surgical History Past Surgical History: Yes: Breast Biopsy, ( x 2) Hx Myomectomy: No Hx Transabdominal Cerclage: No - Smoking History Smoking history: Never smoked Have you smoked in the past 12 months: No Aproximately how many cigarettes per day: 0 - Alcohol/Substance Use Hx Alcohol Use: No History of Substance Use: reports: None - Social History Usual Living Arrangement: Yes: With Spouse, With Child Do you think of yourself as: Straight/Heterosexual ADL: Independent History of Recent Travel: No Home Medications - Allergies Allergies/Adverse Reactions: Allergies Allergy/AdvReac Type Severity Reaction Status Date / Time No Known Allergies Allergy Verified 09/06/19 11:30 - Home Medications Home Medications: Ambulatory Orders Pnv with Ca,No.71/Iron/FA [ Vitamin Tablet] 1 each PO DAILY 10/19/12 Nitrofurantoin Monohyd/M-Cryst [Macrobid -] 100 mg PO BID #14 capsule 09/08/19 Family Medical History Family Hx Cancer: Grandmother (maternal) Family Hx Nuerologic Problems: Mother (seizure d/o) Review of Systems - Review of Systems Constitutional: reports: Other (contractions q 7-9 min) Eyes: reports: No Symptoms HENT: reports: No Symptoms Neck: reports: No Symptoms Cardiovascular: reports: No Symptoms Respiratory: reports: No Symptoms Gastrointestinal: reports: No Symptoms Genitourinary: reports: No Symptoms Breasts: reports: No Symptoms Reported Musculoskeletal: reports: No Symptoms Integumentary: reports: No Symptoms Neurological: reports: No Symptoms Endocrine: reports: No Symptoms Hematology/Lymphatic: reports: No Symptoms Psychiatric: reports: No Symptoms Pain Intensity: 6 Physical Exam - Maternity Vital Signs: Vital Signs Temperature 98.1 F 03/09/20 08:56 Pulse Rate 81 03/09/20 08:56 Respiratory Rate 18 03/09/20 08:56 Blood Pressure 104/67 03/09/20 08:56 O2 Sat by Pulse Oximetry (%) Constitutional: Yes: Well Nourished, No Distress, Calm Eyes: Yes: WNL, Conjunctiva Clear, EOM Intact HENT: Yes: WNL, Atraumatic, Normocephalic Neck: Yes: WNL, Supple, Trachea Midline Cardiovascular: Yes: WNL, Regular Rate and Rhythm Lungs: Clear to auscultation, Normal air movement Breast(s): Yes: WNL - Abdominal Exam/OB Fundal Height: 38 Number of Fetuses: Single Presentation: Vertex Contractions: Yes Regularity: Regular Intensity: Mild/Mod Monitor Mode: External Heart Rate (range): 140 Heart Rate Location: Midline Category: I Accelerations: Uniform Decelerations: None - Vaginal Exam/OB Vaginal Bleeding: No Speculum Exam: No Amniotic Membrane Status: Intact Presentation: Vertex/Position - Physical Exam Musculoskeletal: Yes: WNL Extremities: Yes: WNL Edema: Yes Edema: LLE: Trace, RLE: Trace Integumentary: Yes: WNL Deep Tendon Reflex Grade: Normal +2 ...Motor Strength: WNL Psychiatric: Yes: WNL, Alert, Oriented Hemorrhage Risk Assessment - Risk Factors Medium Risk Factors: Yes: Prior , uterine surgery,or multiple laparotomies High Risk Factors: Yes: None Risk Score: 1 Risk Level: Medium Risk Imaging - Results Ultrasound: Report Reviewed Assessment/Plan 40yo P2 with at EGA 38w0d admitted for repeat C/S and sterilization. We discussed the risks and benefits of C/S at length, including but not limited to scarring, pain, bleeding, infection, injury to underlying organs and structures, need for additional surgery to repair/treat any problems or complications, complications/injuries, etc. The pt verbalized her understanding and requested to proceed with surgery. The pt is aware that all surgeries have risks and no guarantees can be provided.
[2020-03-09 10:46] LABS: INR 0.92 (0.83-1.09); PROTHROMBIN TIME (PATIENT) 10.9 SEC (9.7-13.0)
[2020-03-09 11:06] LABS: BLOOD UREA NITROGEN 10.4 mg/dL (7-18); CALCIUM 8.7 mg/dL (8.5-10.1); CREATININE 0.5 mg/dL (0.55-1.3); POTASSIUM 3.8 mmol/L (3.5-5.1)
[2020-03-09] MEDS ORDERED: OXYTOCIN 20 UNITS in 0.9% NS 40 UNIT/2,000 ML INFUS.BAG IV ONE (11:36)
[2020-03-09] MEDS ORDERED: ELECTROLYTE-148 SOLN 500 ML IV ONE (11:41)
[2020-03-09] MEDS ORDERED: CITRIC ACID/SODIUM CITRATE 30 ML UNIT-DOSE CUP PO ONE (11:41)
[2020-03-09] MEDS ORDERED: morphine SULFATE/PF 0.5 MG/ML (2cc Syringe - QUVA) ONE (11:53)
[2020-03-09] MEDS ORDERED: KETOROLAC TROMETHAMINE 30 MG/1 ML VIAL ONE (11:56)
[2020-03-09] MEDS ORDERED: ceFAZolin SODIUM 1 GM VIAL ONE (11:56)
[2020-03-09] MEDS ORDERED: morphine SULFATE/PF 0.5 MG/ML (2cc Syringe - QUVA) EP ONE (12:05)
[2020-03-09 12:46] LABS: ANISOCYTOSIS 0; MACROCYTOSIS 0; PLATELET ESTIMATE DECREASED
[2020-03-09] MEDS ORDERED: MIDAZOLAM HCL 2 MG/2 ML SINGLE DOSE VIAL ONE (13:13)
[2020-03-09 13:34] LABS: CORD BASE EXCESS -2.2 mmol/L (0-2); CORD PCO2 46.5 mmHg (30-78); CORD pH 7.331 (7.14-7.44)
[2020-03-09 13:39] LABS: CORD BASE EXCESS -3.4 mmol/L (0-2); CORD HCO3 24.6 mmHg (20-29); CORD pH 7.261 (7.14-7.44)
[2020-03-09] MEDS ORDERED: ACETAMINOPHEN INJECTION 100 ML IVPB ONE (13:46)
[2020-03-09] MEDS: ACETAMINOPHEN 1000 MG/100 ML VIAL (NON FORMULARY) IVPB SCH ×2 (14:00→23:21)
[2020-03-09] MEDS ORDERED: SENNOSIDES/DOCUSATE COMBO (SENNA PLUS) TABLET (UD) PO PRN (14:56)
[2020-03-09] MEDS ORDERED: WITCH HAZEL 50% (TUCKS) 40 PAD/JAR PAD TP PRN (14:56)
[2020-03-09] MEDS ORDERED: METHYLERGONOVINE MALEATE 0.2 MG/1 ML AMP IM PRN (14:56)
[2020-03-09] MEDS ORDERED: IBUPROFEN 800 MG/8 ML IJ IVPB PRN (14:56)
[2020-03-09] MEDS ORDERED: ACETAMINOPHEN 325 MG TABLET (FP) PO PRN (14:56)
[2020-03-09] MEDS ORDERED: BENZOCAINE 20% 57 GM BOTTLE TP PRN (14:56)
[2020-03-09] MEDS ORDERED: BENZOCAINE 28 GM HEMORRHOIDAL OINTMENT TP PRN (14:56)
[2020-03-09] MEDS ORDERED: OXYTOCIN 20 UNITS in 0.9% NS 20 UNIT/1,000 ML INFUS.BAG IV SCH (15:00)
--- NOTE | 2020-03-09 15:04 | OP ---
Operative Note - Note: Operative Date: 03/09/20 Pre-Operative Diagnosis: at EGA 38w0d. Prior C/S x 2. Spont labor. AMA. Sterilization Operation: Repeat LT C/S. Bilateral Salpingectomy Findings: Live baby boy in vtx presentation, no meconium in amniotic fluid, 9-9. Very dense adhesions b/w [id number] abdominal wall, Normal Fallopian tubes and ovaries bilaterally. Post-Operative Diagnosis: Same as Pre-op Surgeon: Vadim Ricardo Shrimping Boat Captain: Rossi Dacosta Anesthesiologist/RN MENTAL HEALTH: Jasper Vázquez Anesthesia: Spinal Specimens Removed: Placenta, right and left Fallopian tubes Estimated Blood Loss (mls): 1,200 Drains & Tubes with Location: Cuellar cath Drains, Volume Out (mls): 300 Blood Volume Replaced (mls): 0 Fluid Volume Replaced (mls): 1,500 Operative Report Dictated: Yes
--- NOTE | 2020-03-09 18:44 | OP ---
DATE OF OPERATION: 03/09/2020 PREOPERATIVE DIAGNOSIS: at estimated gestational age of 38 weeks and 0 days. Previous section x2. Spontaneous labor. Advanced maternal age. Sterilization. A thin and weakened lower uterine segment noticed on the previous section, "a window." SURGEON: Vadim Ricardo MD. MICROFICHE CAMERA OPERATOR: Rossi Dacosta MD. ANESTHESIOLOGIST: Eduardo Vázquez MD. ANESTHESIA: Spinal. POSTOPERATIVE DIAGNOSIS: at estimated gestational age of 38 weeks and 0 days. Previous section x2. Spontaneous labor. Advanced maternal age. Sterilization. A thin and weakened lower uterine segment noticed on the previous section, "a window." INTRAVENOUS FLUIDS: 1500 mL. URINE OUTPUT: 300 mL clear urine at the end of the procedure. ESTIMATED BLOOD LOSS: 1200 mL. COMPLICATIONS: None. PATHOLOGY: Placenta and left and right fallopian tubes. SURGERY: Repeat low transverse section via Pfannenstiel skin incision, bilateral salpingectomy. FINDINGS: Live baby boy in vertex presentation. No meconium in amniotic fluids. Apgars of 9 and 9. Multiple severe and very dense adhesions between the uterus, bladder, and anterior abdominal wall. There were no surgical planes available between the anterior abdominal wall fascia, myometrium, and the bladder. Normal fallopian tubes were noted bilaterally. Normal ovaries were observed bilaterally. Omentum was adherent to the uterine fundus. PROCEDURE: The patient was met preoperatively. Risks, benefits, and alternatives of surgery were discussed in detail. All questions were answered. The consent form was reviewed, and the patient verbalized her understanding. The patient requested to proceed with the surgery. The patient was then brought to the OR with the IV running. She was placed on the surgical table in a sitting position. The spinal anesthesia was achieved without difficulty. The patient was then placed in the supine position with leftward tilt. She was prepped and draped in the usual sterile fashion. A Cuellar catheter was inserted and left to drain to gravity. A timeout was conducted as per standard protocol. The surgeons then proceeded with the operation. A Pfannenstiel skin incision was made with the knife along the prior scar. The incision was taken down to the level of fascia. The fascia was incised in the midline. The incision was then extended bilaterally using curved Mayos. The fascia was then dissected away from the rectus muscles superiorly and inferiorly using sharp dissection. Good hemostasis was obtained. The rectus muscles were in the midline. At that point, it was realized that there were no surgical planes between the anterior abdominal wall, bladder, and the uterus. The uterus was completely adherent to the abdominal wall and rectus muscle. Once the rectus muscles were dissected from the uterus, the bladder was also dissected away from the lower uterine segment. Careful and meticulous dissection was then taken to allow for the bladder to be reflected downwards. Good hemostasis was obtained. Once enough of a space was created to deliver the baby, the uterus was incised transversely in the lower uterine segment. The lower uterine segment was noted to be thin but intact. Once the lower uterine segment was incised transversely, the incision was extended bilaterally using bandage scissors. The baby was delivered from vertex presentation without complications. There was no meconium in amniotic fluids. The baby was crying spontaneously. The baby was handed to the waiting blackjack supervisor. A segment of the umbilical cord was secured for cord blood gases. The placenta was then delivered by manual expression without complications. The uterus was exteriorized. Multiple adhesions between the uterus and the omentum were lysed with good hemostasis. The uterine incision was closed using a 0 Biosyn suture with a running, locking stitch. Good hemostasis was noted. Some bleeding surfaces on the anterior uterine fundus that resulted from dissection were noted to be bleeding and the [id number] sutures were placed as well as Surgicel was used to achieve good hemostasis. Once this was accomplished, the uterus was examined and noted to be well contracted. The left fallopian tube was located and followed to the fimbriated end. The left fallopian tube was then carefully excised completely and sent to pathology; due to adhesions of the fallopian tube it was submitted in 2 fragments. The right fallopian tube was also found. There were adhesions of the right fallopian tube to the uterus noted. The right fallopian tube was then completely excised and sent to pathology, also in 2 segments. Good hemostasis was once again noted. The uterus was then returned into the abdominal cavity. Once again the operative site was monitored for hemostasis and good hemostasis was assured. The operative site was then irrigated using copious amounts of normal saline. The Surgicel was left in place to continue providing good hemostasis. The parietal peritoneum was then approximated using a 2-0 chromic suture. The rectus muscles were then approximated in the midline using several interrupted 2-0 chromic sutures. The rectus fascia was closed using a 0 Vicryl suture with a running stitch in 2 segments. The subcutaneous tissues were approximated in the midline using several interrupted 2-0 chromic sutures. The incision was then closed using a 4-0 Biosyn suture in a subcutaneous stitch. Sponge, lap, and needle and instrument counts were correct. Patient tolerated procedure well and was transferred to recovery room in stable condition and awake. Dc [id number]
[2020-03-09 19:38] LABS: BASO % 0.2 % (0-2.0); EOS % 0.9 % (0-4.5); HEMOGLOBIN 11.4 GM/dL (10.7-15.3); LYMPH % 11.3 % (8-40); MCHC 33.4 g/dl (32.0-36.0); MEAN CELL VOLUME 95.9 fl (80-96); MEAN PLT VOLUME 9.3 fl (7.5-11.1); MONO % 4.7 % (3.8-10.2); NEUT % 82.9 % (42.8-82.8); PLATELET COUNT 141 K/MM3 (134-434); RBC 3.55 M/mm3 (3.60-5.2); RDW 15.2 % (11.6-15.6); WHITE BLOOD COUNT 9.8 K/mm3 (4.0-10.0)
[2020-03-09 20:29] LABS: PLATELET ESTIMATE DECREASED
[2020-03-10] MEDS: ACETAMINOPHEN 1000 MG/100 ML VIAL (NON FORMULARY) IVPB SCH ×3 (04:46→15:54)
[2020-03-10 09:20] LABS: BASO % 0.4 % (0-2.0); EOS % 0.8 % (0-4.5); HEMATOCRIT 33.8 % (32.4-45.2); HEMOGLOBIN 11.3 GM/dL (10.7-15.3); LYMPH % 6.6 % (8-40); MCH 31.6 pg (25.7-33.7); MCHC 33.3 g/dl (32.0-36.0); MEAN CELL VOLUME 94.9 fl (80-96); MEAN PLT VOLUME 9.2 fl (7.5-11.1); MONO % 3.5 % (3.8-10.2); NEUT % 88.7 % (42.8-82.8); PLATELET COUNT 158 K/MM3 (134-434); RBC 3.56 M/mm3 (3.60-5.2); RDW 14.8 % (11.6-15.6); WHITE BLOOD COUNT 10.2 K/mm3 (4.0-10.0)
[2020-03-10] MEDS: ENOXAPARIN NA (PORCINE) 40 MG/0.4 ML DISP.SYRIN SQ SCH (09:22)
[2020-03-10] MEDS: PRENATAL VITAMINS W/ FOLIC ACID TABLET (FP) PO SCH (09:22)
--- NOTE | 2020-03-10 11:48 | PN ---
Post Progress Note - Subjective Subjective: Patient without acute complaints. Reports tolerating oral intake without nausea or vomiting. Ambulating without dizziness. Denies fevers or chills. Pain well controlled with oral pain medication. Pumping/breast feeding without issue. Passing flatus. Post Day: 1 Type of Delivery: Repeat C/S Vital Signs: Vital Signs Temperature 97.9 F 03/10/20 06:00 Pulse Rate 90 03/10/20 06:00 Respiratory Rate 20 03/10/20 06:00 Blood Pressure 117/59 L 03/10/20 06:00 O2 Sat by Pulse Oximetry (%) 98 03/09/20 15:15 Breast Exam: Yes: Soft Uterus: Yes: Fundus Firm, Fundus below umbilicus, Non-tender Incision: Yes: Dressing dry and intact Abdomen/GI: Yes: Abdomen soft, Passing flatus, Tolerating PO Lochia: Yes: Rubra Lochia, amount: Small Extremities: Yes: Calves non-tender, Edema (trace) Perineum: Yes: Intact Activity: Ambulating - Labs Labs: CBC WBC 10.2 K/mm3 (4.0-10.0) H 03/10/20 08:40 RBC 3.56 M/mm3 (3.60-5.2) L 03/10/20 08:40 Hgb 11.3 GM/dL (10.7-15.3) 03/10/20 08:40 Hct 33.8 % (32.4-45.2) 03/10/20 08:40 MCV 94.9 fl (80-96) 03/10/20 08:40 MCH 31.6 pg (25.7-33.7) 03/10/20 08:40 MCHC 33.3 g/dl (32.0-36.0) 03/10/20 08:40 RDW 14.8 % (11.6-15.6) 03/10/20 08:40 Plt Count 158 K/MM3 (134-434) 03/10/20 08:40 MPV 9.2 fl (7.5-11.1) 03/10/20 08:40 Absolute Neuts (auto) 9.0 K/mm3 (1.5-8.0) H 03/10/20 08:40 Neutrophils % 88.7 % (42.8-82.8) H 03/10/20 08:40 Neutrophils % (Manual) 82.0 % (42.8-82.8) 03/09/20 17:50 Band Neutrophils % 5.0 % 03/09/20 17:50 Lymphocytes % 6.6 % (8-40) L D 03/10/20 08:40 Lymphocytes % (Manual) 9.0 % (8-40) D 03/09/20 17:50 Monocytes % 3.5 % (3.8-10.2) L 03/10/20 08:40 Monocytes % (Manual) 4 % (3.8-10.2) D 03/09/20 17:50 Eosinophils % 0.8 % (0-4.5) 03/10/20 08:40 Eosinophils % (Manual) 6.3 % (0-4.5) H D 03/09/20 09:22 Basophils % 0.4 % (0-2.0) 03/10/20 08:40 Basophils % (Manual) 0.0 % (0-2.0) 03/09/20 09:22 Myelocytes % (Man) 5 % (0-2) H 03/09/20 09:22 Promyelocytes % (Man) 0 % (0-2) 03/09/20 09:22 Blast Cells % (Manual) 0 % (0-0) 03/09/20 09:22 Nucleated RBC % 0 % (0-0) 03/10/20 08:40 Metamyelocytes 2 % (0-2) 03/09/20 09:22 Hypochromia 0 03/09/20 09:22 Platelet Estimate Decreased 03/09/20 17:50 Polychromasia 1+ 03/09/20 09:22 Poikilocytosis 0 03/09/20 09:22 Anisocytosis 0 03/09/20 09:22 Microcytosis 0 03/09/20 09:22 Macrocytosis 0 03/09/20 09:22 Assessment/Plan 40yo P3 female s/p repeat LT C/S, doing well stable, afebrile. The pt is asymptomatic for s/sxs of anemia. care instructions reviewed. Postoperative care and instructions reviewed. Continue routine postop care. Ambulation encouraged.
--- NOTE | 2020-03-10 11:55 | DS ---
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 Vital Signs: Vital Signs Temperature 97.9 F 03/10/20 06:00 Pulse Rate 90 03/10/20 06:00 Respiratory Rate 20 03/10/20 06:00 Blood Pressure 117/59 L 03/10/20 06:00 O2 Sat by Pulse Oximetry (%) 98 03/09/20 15:15 Constitutional: Yes: Well Nourished, No Distress, Calm Eyes: Yes: WNL, Conjunctiva Clear, EOM Intact HENT: Yes: WNL, Atraumatic, Normocephalic Neck: Yes: WNL, Supple, Trachea Midline Cardiovascular: Yes: WNL, Regular Rate and Rhythm Respiratory: Yes: WNL, Regular, CTA Bilaterally Gastrointestinal: Yes: WNL, Normal Bowel Sounds, Soft ...Rectal Exam: Yes: Deferred Renal/: Yes: WNL, Other (no CVAT) Internal Exam Deferred: Yes ....Post : Yes: Uterus firm, Uterus non-tender, Slight lochia rubra Breast(s): Yes: WNL Musculoskeletal: Yes: WNL Extremities: Yes: WNL Edema: Yes Edema: LLE: Trace, RLE: Trace Integumentary: Yes: WNL Wound/Incision: Yes: Clean/Dry, Well Approximated, Steri Strips Neurological: Yes: WNL, Alert, Oriented ...Motor Strength: WNL Psychiatric: Yes: WNL, Alert, Oriented Labs: CBC, BMP 03/10/20 08:40 03/09/20 09:22 Delivery - Delivery Section: Repeat, Low Flap Transverse Type of Anesthesia: Spinal Episiotomy/Laceration: None EBL (cc): 1,200 Delivery, Single - Stages of Labor Date 1st Stage Initiatied: 03/08/20 Date of Delivery: 03/09/20 Time of Delivery: 12:47 Time Placenta Delivered: 12:48 Placenta: Yes: Expressed, Manual Removal, Normal Configuration - Condition of Chiropractic Neurologist/Charging Plug Placer Present: Yes Name: Karlene Bello Infant Gender: Male Weight: 2.92 kg Position: Right, OT Total Hours ROM (Hrs/Mins): 0/2 - 1 Minute Total Score: 9 5 Minutes Total Score: 9 - [place] Feeding Plan Initial Plan: Exclusive throughout hospitalization Benefits of Exclusively reinforced: Yes Discharge Summary Problems reviewed: Yes Reason For Visit: SECTION Repeat C/S and bilateral salpingectomy Procedures: Principal: Repeat C/S Other Procedures: bilateral salpingectomy Hospital Course: Normal Postop recovery and normal Plan of Treatment: Normal Postop recovery and normal Goals: Pain management, normal Postop recovery and normal Condition: Good - Instructions Diet, Activity, Other Instructions: Physical activity Resume your normal everyday activity as tolerated no heavy lifting or exercise until seen by your surgeon. You may walk unlimited connor of and climb stairs. You may resume driving the car when you feel safe and comfortable behind the wheel. No sexual activity as instructed. Wound care If you have a bandage, leave it on, and keep dry for 48-72 hours. After that time discard the outer bandage. If they are tapes on the skin under the out of bandage leave them in place. They will peel off in the next 7 to 10 days. Do Not Peel them off. You may shower the day after surgery. If there are tapes present on the skin, you may shower over them. Diet There are no dietary restrictions. Eat healthy, high-fiber foods. Drink 6 to 8 glasses of liquid each day. This will assist in keeping your bowels are regular. Pain management You may take Tylenol or acetaminophen or Ibuprofen (for example, Motrin, Advil etc.) from my pain prescription medication is ordered should be taken as prescribed for moderate to severe pain. Call MD for any of the following: Severe pain not relieved by medication Fever of 101 or higher Excessive bleeding or drainage on dressing Inability to urinate Referrals: Vadim Ricardo MD [Staff Physician] - Disposition: HOME - Home Medications Comprehensive Discharge Medication List: Ambulatory Orders Pnv with Ca,No.71/Iron/FA [ Vitamin Tablet] 1 each PO DAILY 10/19/12 Nitrofurantoin Monohyd/M-Cryst [Macrobid -] 100 mg PO BID #14 capsule 09/08/19 Prescription Drug Monitoring Program (I-STOP) results: I-STOP not reviewed
[2020-03-10] MEDS: IBUPROFEN 600 MG TABLET (FP) PO PRN ×2 (13:30→19:28)
[2020-03-10] MEDS: oxyCODONE HCL 5 MG TABLET PO PRN ×2 (13:30→19:29)
[2020-03-10] MEDS: SIMETHICONE 80 MG TAB.CHEW (FP) PO PRN ×2 (13:31→19:28)
--- NOTE | 2020-03-10 13:41 | PN ---
Progress Note (short form) - Note Progress Note: 40 F s/p C/S under duramorph spinal. Vital Signs Temp 98.5 F 03/10/20 09:00 Pulse 100 H 03/10/20 09:00 Resp 20 03/10/20 13:00 BP 94/56 L 03/10/20 09:00 Pulse Ox 98 03/09/20 15:15 Intake & Output 03/09/20 03/10/20 03/10/20 23:59 11:59 23:59 Intake Total 2000 200 Output Total 650 1700 Balance 1350 -1500 Intake: IV 1900 200 NORMAL SALINE+20 UNITS 1900 200 OXYTOCIN - 20 unit In 1, 000 ml @ 125 mls/hr IV ASD[facility] Rx#:[id number] IVPB 100 Output: Urine 650 1700 Cuellar 650 1200 Void 500 Other: Voiding Method Toilet Toilet Weight 6 lb 7 oz 6 lb 7 oz Length 18.5 in - No anesthesia complications
[2020-03-10] MEDS ORDERED: BISACODYL 10 MG SUPP.RECT RC PRN (14:56)
[2020-03-10 19:33] VITALS: TEMP 98.3
[2020-03-11] MEDS: IBUPROFEN 600 MG TABLET (FP) PO PRN ×2 (04:47→09:06)
[2020-03-11] MEDS: oxyCODONE HCL 5 MG TABLET PO PRN ×2 (04:48→09:05)
[2020-03-11] MEDS: ENOXAPARIN NA (PORCINE) 40 MG/0.4 ML DISP.SYRIN SQ SCH (09:06)
[2020-03-11] MEDS: SIMETHICONE 80 MG TAB.CHEW (FP) PO PRN (09:06)
[2020-03-11] MEDS: PRENATAL VITAMINS W/ FOLIC ACID TABLET (FP) PO SCH (09:07)
[2020-03-11 12:30] VITALS: BP 105/69; PULSE 96
--- NOTE | 2020-03-15 16:20 | PATH ---
Surgical Pathology Report Patient Name: MARTÍN HURTADO [facility]. Rec. 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 Specimen(s) Received A: PLACENTA B: LEFT FALLOPIAN TUBE C: RIGHT FALLOPIAN TUBE Clinical History , 38 weeks, x2 Final Diagnosis A. PLACENTA: THIRD TRIMESTER PLACENTA. TRIVASCULAR CORD. MEMBRANES WITH NO DIAGNOSTIC ABNORMALITIES. B. LEFT FALLOPIAN TUBE, SALPINGECTOMY: PORTION OF FALLOPIAN TUBE WITH NO SIGNIFICANT PATHOLOGIC CHANGE. COMPLETE CROSS SECTION OF THE FALLOPIAN TUBE LUMEN IDENTIFIED. C. RIGHT FALLOPIAN TUBE, SALPINGECTOMY: PORTION OF FALLOPIAN TUBE WITH NO SIGNIFICANT PATHOLOGIC CHANGE. COMPLETE CROSS SECTION OF THE FALLOPIAN TUBE LUMEN IDENTIFIED. Electronically Signed Nando Jimenez M.D. Gross Description A. The specimen is received fresh labeled placenta and is a 397 gram, 18.5 x 14.0 x 2.7 cm. placenta with attached membranes and umbilical cord. The attached membranes are johnson, translucent with focal opacities and insert marginally. The umbilical cord measures 17.5 cm. in length and averages 1.1 cm. in diameter. The cord inserts eccentrically, 3 cm. to the nearest margin. No true knots or strictures are identified. Cut surface of the umbilical cord reveals 3 vessels. The surface is monteiro-blue with minimal fibrin deposition and appropriate caliber vessels. The maternal surface is red-brown with focal defects. Sectioning reveals red-brown, spongy parenchyma. No lesions are identified. Perioperative Nurse sections are submitted in three cassettes as follows: 1- membrane rolls and umbilical cord; 2-3- full thickness sections of placenta. B. Received in formalin labeled "left fallopian tube," are 2 portions of fallopian tube measuring 1.5 and 3.0 cm in length. The longer portion displays attached fimbria. The outer surfaces are johnson-ronquillo and smooth. Sectioning reveals an unremarkable lumen. Perioperative Nurse sections are submitted in 2 cassettes as follows: 1-fimbria; 2-cross sections of fallopian tube. C. Received in formalin labeled "right fallopian tube," are 2 johnson monteiro portions of fallopian tube measuring 1.8 and 2.8 cm in length. The longer portion displays attached fimbria. The outer surfaces are johnson-ronquillo and smooth. Sectioning reveals an unremarkable lumen. Perioperative Nurse sections are submitted name 2 cassettes as follows: 1-fimbria; 2-cross sections of fallopian tube. 03/13/2020 [facility]03/13/2020
== END 2020-03-11 15:00 | disposition home or self-care (01) | DRG 785 ==
LOC: JLDR 08:25 → J3W 15:48
PROVIDERS: ADMIT Obstetrics & Gynecology; ATTEND Obstetrics & Gynecology
PROC: 0UB70ZZ Excision of Bilateral Fallopian Tubes, Open Approach (ICD-10-PCS; principal; 2020-03-09)
PROC: 10D00Z1 Extraction of Products of Conception, Low, Open Approach (ICD-10-PCS; 2020-03-09)
DX: O82 Encounter for cesarean delivery without indication (principal); Z30.2 Encounter for sterilization; O34.211 Maternal care for low transverse scar from previous cesarean delivery; Z87.440 Personal history of urinary (tract) infections; Z87.442 Personal history of urinary calculi; Z37.0 Single live birth; Z3A.38 38 weeks gestation of pregnancy
CPT/HCPCS: 36415; 36600; 80048; 82803; 85025; 85610; 85730; 86780; 86850; 86900; 86901; 87389; 88302-TC; 88307-TC; J0131; U0003